=== PATIENT | male | born 1990 | race Caucasian/White ===

== ENCOUNTER → 2017-01-18 | Outpatient (CLI) | payer BC ==
[~2017-01-18] MED LIST: CYAN10005 PO; FOLI1TAB7 PO; THIA100T11 PO
[2017-01-18 14:51] LABS: ALT/SGPT 70 U/L (12-78); BLOOD UREA NITROGEN 12 mg/dl (7-18); BUN/CREATININE RATIO 16.6 (10-20); CALCIUM 8.9 mg/dl (8.5-10.1); CARBON DIOXIDE 27 mmol/L (21-32); CHLORIDE 104 mmol/L (98-107); CREATININE 0.74 mg/dl (0.60-1.40); GLUCOSE 94 mg/dl (70-99); POTASSIUM 4.1 mmol/L (3.5-5.1); SODIUM 137 mmol/L (136-145)
[2017-01-18 14:54] LABS: ALB/GLOB RATIO 1.3 (0.9-2); ALKALINE PHOSPHATASE 61 U/L (45-117); AST/SGOT 33 U/L (15-37); PHOSPHORUS 4.1 mg/dl (2.5-4.9)
== END | disposition home or self-care (01) ==
LOC: C.LAB1850 12:53
PROVIDERS: ATTEND Family Medicine Hospice and Palliative Medicine
DX: A69.23 Arthritis due to Lyme disease (principal); M25.519 Pain in unspecified shoulder

== ENCOUNTER 2017-02-17 09:52 | Emergency (ER) | payer BC ==
[~2017-02-17] VITALS: Ht 182.9 cm; Wt 83.3 kg
[2017-02-17 09:58] VITALS: TEMP 36.8; Ht 182.9 cm; Wt 83.3 kg
[2017-02-17] MEDS ORDERED: SODIUM CHLORIDE 0.9% 1000ML 1,000 ML IV STA (10:39)
[2017-02-17] MEDS ORDERED: ONDANSETRON INJ 2 MG/ML 2 ML VIAL IV STA (10:39)
[2017-02-17] MEDS ORDERED: THIA100T11 PO (10:55)
[2017-02-17] MEDS ORDERED: FOLI1TAB7 PO (10:55)
[2017-02-17] MEDS ORDERED: CYAN10005 PO (10:55)
[2017-02-17 11:03] LABS: BASO % 0.9 %; BASO ABS # 0.06 K/uL (0-0.2); COMPLETE YES; EOS % 3.3 %; HEMATOCRIT 41.2 % (42-52); IG% 0.5 %; LYMPH % 29.7 %; LYMPH ABS # 1.91 K/uL (1.2-3.4); MEAN CELL VOLUME 86.7 fL (80-100); MEAN CORPUSCULAR HEMOGLOBIN 30.9 pg (25-34); MEAN CORPUSCULAR HGB CONC 35.7 g/dl (32-36); MONO % 12.1 %; NEUT % 53.5 %; PLATELET COUNT 186 K/uL (130-400); RED BLOOD COUNT 4.75 M/uL (4.7-6.1); URINE APPEARANCE CLEAR (CLEAR); URINE BILIRUBIN NEG (NEG); URINE COLOR YELLOW; URINE NITRITE NEG (NEG); URINE SPECIFIC GRAVITY 1.034 (1.000-1.030); UROBILINOGEN NEG (NEG); WHITE BLOOD COUNT 6.43 K/uL (4.8-10.8)
[2017-02-17 11:12] LABS: MANUAL MICROSCOPIC REQUIRED? NO; REVIEW REQ? NO
[2017-02-17 11:25] LABS: ALT/SGPT 39 U/L (12-78); AST/SGOT 41 U/L (15-37); BLOOD UREA NITROGEN 14 mg/dl (7-18); BUN/CREATININE RATIO 17.1 (10-20); CALCIUM 8.3 mg/dl (8.5-10.1); CARBON DIOXIDE 25 mmol/L (21-32); CHLORIDE 110 mmol/L (98-107); CREATININE 0.79 mg/dl (0.60-1.40); GLUCOSE 92 mg/dl (70-99); POTASSIUM 3.6 mmol/L (3.5-5.1); SODIUM 141 mmol/L (136-145)
[2017-02-17 11:26] LABS: ALKALINE PHOSPHATASE 69 U/L (45-117)
[2017-02-17] MEDS ORDERED: OPTIRAY 320 IV PRN (11:30)
--- NOTE | 2017-02-17 15:20 | DIAGNOSTIC IMAGING REPORT ---
ABDOMINAL ULTRASOUND, RIGHT UPPER QUADRANT HISTORY: ABDOMINAL PAIN/GI. COMPARISON: None. FINDINGS: Pancreas: The pancreas demonstrates a normal echotexture. Liver: Unremarkable. Gallbladder: No gallbladder wall thickening. No gallstones. CBD: 4 mm. Right kidney: Not visualized and may be absent. IMPRESSION: 1. Normal gallbladder. No gallstones. 2. The right kidney was not visualized and may be absent on a congenital basis. Electronically signed by: Bright Byrne M.D. 02/17/2017 3:19 PM Dictated Date/Time: 02/17/2017 3:18 PM
[2017-02-17 15:55] VITALS: BP 138/73; PULSE 65; O2SAT 100
--- NOTE | 2017-02-17 17:35 | EMERGENCY ROOM VISIT NOTE ---
ED Visit Note First contact with patient: 10:06 Chief Complaint: My liver is throbbing. History of Present Illness: Mr. Cardenas is a 27 year-old white male who ambulates into the ED complaining of right upper quadrant abdominal pain. Historically patient reports 3 months ago he was in the hospital for 3 weeks after he had a liver injury from IV doxycycline that he was being treated for for Lyme's disease. Patient reports approximately one month ago he started experiencing right upper quadrant pain. Since that time the pain has been constant. He describes his pain as a throbbing sensation. He rates his discomfort 4/10. The pain is radiating into the mid thoracic back. He has not identified any aggravating or alleviating factors related to the pain. He has not taken any medication for pain prior to arrival at the hospital. Associated with his pain he reports she' s been nauseated but has not vomited and he has been having chills but no martin fevers. Patient denies sweats, skin eruptions, skin color changes, upper respiratory tract symptoms, shortness of breath, chest pain, decreased appetite, weight changes, diarrhea, constipation, rectal bleeding, black/tarry stools, urinary symptoms, hematuria, flank pain. Review of Systems: As noted above in history of present illness. All body systems were reviewed and found to be negative as noted above. Past Medical History: As previously noted. Current Medications: Multivitamins. Allergies to Medications: Patient denies. Social History: Patient is currently University student. He denies tobacco use. Physical Examination: Vital Signs: Date Time Temp Pulse Resp B/P (MAP) Pulse Ox O2 Delivery O2 Flow Rate FiO2 02/17/17 15:55 65 16 138/73 100 02/17/17 13:49 62 18 123/79 99 02/17/17 12:09 57 18 129/76 100 02/17/17 11:04 67 02/17/17 09:58 36.8 92 18 149/88 97 Room Air GENERAL: 27-year-old male in mild distress due to pain, nontoxic-appearing, afebrile and hemodynamically stable. NEUROLOGICAL: Awake, alert and oriented to person, place and time. Answering questions appropriately and following commands. Normal gait. Good hand eye coordination. SKIN: Warm, dry and pink. No soft tissue eruptions or trauma noted. HEENT: Atraumatic and normocephalic. PERRLA. Sclera white and conjunctiva pink. Oral cavity moist and pink. Pharynx is nonerythematous or edematous. Speech normal. No lymphadenopathy. Trachea midline. No jugular venous distention. BACK: No tenderness over the bony spine. No CVA tenderness. THORAX: Lungs sounds are clear to auscultation and equal bilaterally with symmetrical chest wall. No wheezing, rales or rhonchi. No crepitus, tenderness , subcutaneous air or deformities noted. HEART: Regular rate and rhythm. No gallops, rubs or murmurs are appreciated. ABDOMEN: Flat, soft and nontender. Positive bowel sounds in all quadrants. No guarding, rigidity or organomegaly. EXTREMITIES: Moves all extremities well on command and with purpose. All distal neurovascular statuses are intact and equal bilaterally. ED Course: Patient is assessed as noted above. Laboratory Testing: Test 02/17/17 10:45 Range/Units White Blood Count 6.43 4.8-10.8 K/uL Red Blood Count 4.75 4.7-6.1 M/uL Hemoglobin 14.7 14.0-18.0 g/dL Hematocrit 41.2 42-52 % Mean Corpuscular Volume 86.7 80-100 fL Mean Corpuscular Hemoglobin 30.9 25-34 pg Mean Corpuscular Hemoglobin Concent 35.7 32-36 g/dl Platelet Count 186 130-400 K/uL Mean Platelet Volume 11.0 7.4-10.4 fL Neutrophils (%) (Auto) 53.5 % Lymphocytes (%) (Auto) 29.7 % Monocytes (%) (Auto) 12.1 % Eosinophils (%) (Auto) 3.3 % Basophils (%) (Auto) 0.9 % Neutrophils # (Auto) 3.44 1.4-6.5 K/uL Lymphocytes # (Auto) 1.91 1.2-3.4 K/uL Monocytes # (Auto) 0.78 0.11-0.59 K/uL Eosinophils # (Auto) 0.21 0-0.5 K/uL Basophils # (Auto) 0.06 0-0.2 K/uL RDW Standard Deviation 39.8 36.4-46.3 fL RDW Coefficient of Variation 12.4 11.5-14.5 % Immature Granulocyte % (Auto) 0.5 % Immature Granulocyte # (Auto) 0.03 0.00-0.02 K/uL Urine Color YELLOW Urine Appearance CLEAR CLEAR Urine pH 5.0 4.5-7.5 Urine Specific Fowler 1.034 1.000-1.030 Urine Protein NEG NEG Urine Glucose (UA) NEG NEG Urine Ketones TRACE NEG Urine Occult Blood NEG NEG Urine Nitrite NEG NEG Urine Bilirubin NEG NEG Urine Urobilinogen NEG NEG Urine Leukocyte Esterase NEG NEG Sodium Level 141 136-145 mmol/L Potassium Level 3.6 3.5-5.1 mmol/L Chloride Level 110 98-107 mmol/L Carbon Dioxide Level 25 21-32 mmol/L Anion Gap 6.0 3-11 mmol/L Blood Urea Nitrogen 14 7-18 mg/dl Creatinine 0.79 0.60-1.40 mg/dl Est Creatinine Clear Calc Drug Dose 156.9 ml/min Estimated GFR () 144.7 Estimated GFR (Non- 124.8 BUN/Creatinine Ratio 17.1 10-20 Random Glucose 92 70-99 mg/dl Calcium Level 8.3 8.5-10.1 mg/dl Total Bilirubin 0.4 0.2-1 mg/dl Direct Bilirubin < 0.1 0-0.2 mg/dl Aspartate Amino Transf (AST/SGOT) 41 15-37 U/L Alanine Aminotransferase (ALT/SGPT) 39 12-78 U/L Alkaline Phosphatase 69 45-117 U/L Total Protein 6.9 6.4-8.2 gm/dl Albumin 4.0 3.4-5.0 gm/dl Lipase 143 73-393 U/L Gallbladder Ultrasound: Was reviewed by myself and read by the radiologist showing a normal-appearing gallbladder without any gallstones or wall thickening. Normal-appearing liver and pancreas. Right kidney nonvisualized; patient reports he is kidney is deeper in the pelvis. Patient was hydrated with normal saline and he received 4 mg of Zofran IV for nausea. Patient was reassessed multiple times during his stay in the emergency department. Patient's case was reviewed with Dr. Horton; we agreed on diagnostic approach, treatment, disposition and plan. Patient was educated about today's findings and instructed on his treatment plan ; he verbalizes understanding and agreement with this plan. Clinical Impression: Acute right upper quadrant abdominal pain. Decision-Making: Initially my differential diagnosis I considered hepatitis, pancreatitis, cholecystitis, bowel obstruction, ureter calculus and other causes. Disposition: Patient discharged home in stable condition; prior to departure he was reassessed and subjectively reported he was the same and rated his discomfort 3/10. Plan: Patient was encouraged to continue his current medications as prescribed. Patient was encouraged to avoid acetaminophen and use 650 mg of ibuprofen every 6 hours. Patient was encouraged to stay well-hydrated with increased clear fluids. Patient was encouraged to follow-up with his PCP for recheck. Patient is encouraged return ED for worsening/uncontrolled pain, vomiting, fevers or any new/concerning symptoms. Patient was encouraged to follow-up with personal physician for recheck in 1-2 days. Patient was encouraged return the ED for worsening symptoms, fevers, or any new/ concerning symptoms.
== END 2017-02-17 15:55 | disposition home or self-care (01) ==
LOC: C.EDB 09:54 → C.EDC 15:55
DX: R10.11 Right upper quadrant pain (principal)

== ENCOUNTER → 2017-03-13 | Outpatient (CLI) | payer BC ==
[~2017-03-13] MED LIST changes: +SINCALIDE INJ 1.6 MCG in SODIUM CHLORIDE 0.9% 100ML 100 ML IV ONE
--- NOTE | 2017-03-13 10:11 | DIAGNOSTIC IMAGING REPORT ---
NUCLEAR MEDICINE HEPATOBILIARY SCAN WITH EJECTION FRACTION ANALYSIS CLINICAL HISTORY: Abdominal pain COMPARISON STUDY: Gallbladder ultrasound dated 02/17/2017 FINDINGS: The patient was injected with 5.3 mCi of technetium 99m Choletec. Anterior imaging was performed. Hepatic excretion appeared unremarkable. The gallbladder was first visualized on the 10 minute image. There is normal passage of activity into small bowel. At 1 hour the patient was administered 1.6 mcg of sincalide utilizing a 30 minute intravenous infusion. The gallbladder ejection fraction was normal measuring 100%. IMPRESSION: 1. Normal study 2. No evidence of cystic duct obstruction. Normal gallbladder ejection fraction of 100% Electronically signed by: Jordan Hernandez M.D. 03/13/2017 10:10 AM Dictated Date/Time: 03/13/2017 10:08 AM
== END | disposition home or self-care (01) ==
LOC: C.NUCL 07:52
PROVIDERS: ATTEND Internal Medicine Gastroenterology
DX: R10.11 Right upper quadrant pain (principal)

== ENCOUNTER → 2017-04-03 | Outpatient (CLI) | payer BC ==
[~2017-04-03] MED LIST changes: -SINCALIDE INJ 1.6 MCG in SODIUM CHLORIDE 0.9% 100ML 100 ML IV ONE
[2017-04-03 15:47] LABS: THYROID STIMULATING HORMONE 1.69 uIu/ml (0.300-4.500)
== END | disposition home or self-care (01) ==
LOC: C.LAB 13:51
PROVIDERS: ATTEND Psychiatry & Neurology Neurology
DX: G72.9 Myopathy, unspecified (principal)